=== PATIENT | male | born 1990 | race African-American/Black ===

== ENCOUNTER 2023-05-18 13:59 | Inpatient (IN) ==
--- NOTE | 2023-05-18 14:12 | ED Triage Note ---
Date of Service May 18, 2023 Provider in Triage Author: Lucio Harper History of Present Illness This patient was briefly evaluated while in triage. An abbreviated physical exam was performed. This patient is a 32-year-old Male who presents to the ED for evaluation of chest pain, R side of chest and down R side. Ongoing x 1.5 weeks. Cannot breathe when lay on R side or on back. No close contacts ill. Physical Exam GENERAL: 32 year old male. In no acute distress. SKIN: No lesions or rashes. HEART: Regular rate and rhythm. LUNGS: Clear to auscultation. ABDOMEN: Bowel sounds normoactive. No guarding or rigidity. No tenderness of palpation. NEURO: Alert and oriented. No deficits. MUSCULOSKELETAL: No deformities to inspection of the extremities. PSYCH: Patient is pleasant and answers all questions appropriately. Initial orders for labs and / or imaging were placed and patient was placed in the waiting area until a bed is available. Please see further documentation for the full ED course.
--- NOTE | 2023-05-18 14:20 | Emergency Department Note ---
History of Present Illness General Chief complaint: Chest Pain Stated complaint: CHEST PAINS Time Seen by Provider: 05/18/23 14:17 History of Present Illness This is a 32-year-old male that presents to the emergency department via private vehicle accompanied by 2 corrections officers from [facility] where he currently resides with complaints of "right-sided chest pain". Patient has for the past 1.5 weeks he has been experiencing right anterior chest pain that radiates to the right flank. No known trauma or injury. He denies any history of similar. He notes pain is also worse with a deep breath. He cannot lay flat or on his back without trouble breathing/increasing pain. He denies any trauma or injury. No fevers. I did review the accompanying documentation as provided by the corrections officers. No known drug allergies listed. Patient notes allergy to onions. Patient's active medication list includes aripiprazole, buspirone, and prazosin. History of nightmare disorder, adjustment disorder with mixed anxiety and depressed mood, cannabis use disorder. History provided from the emergency room transfer form reveals: Tachycardia, smoker, pleuritic chest pain, shortness of breath ongoing for 2 weeks, to lay flat. Sent to rule out PE. EKG dated 05/18/2023 at 1344 HRS reveals sinus tachycardia at rate of 104 bpm. QTc 449. QRS [address] elevation. Home Medications Medication Instructions Recorded Confirmed Type aripiprazole 5 mg tablet (Abilify) 5 mg PO HS 05/18/23 05/18/23 History buspirone 30 mg tablet 30 mg PO HS 05/18/23 05/18/23 History mirtazapine 45 mg tablet 45 mg PO HS 05/18/23 05/18/23 History prazosin 5 mg capsule 5 mg PO HS 05/18/23 05/18/23 History apixaban 5 mg tablet (Eliquis) 5 mg PO UD #30 tabs 05/20/23 Rx Allergies Allergy/AdvReac Type Severity Reaction Status Date / Time No Known Allergies Allergy Unverified 05/18/23 17:14 Past Med/Surg History Social History Smoking Status: Current every day smoker Tobacco Type: E-cigarettes / Vaping Hx Substance Use: No Communication Ability: Effective Production Estimator Required: No Beliefs That Will Affect Care: None Current Living Situation: Other Feels Safe at Home: Declines to Answer Assistive Devices: None Review of Systems A total of 10 systems reviewed and were otherwise negative Physical Exam Vital Signs Vital Signs - 24 hr 05/18/23 14:08 05/18/23 15:24 05/18/23 15:25 Temperature 36.0 C L Temperature Source Temporal Artery Scan Pulse Rate 96 H 93 H Pulse Rate [Apical] 93 H Respiratory Rate 17 18 18 Respiratory Effort / Characteristics Non-Labored Spontaneous Non-Labored Spontaneous Respiratory Depth Normal Normal Blood Pressure 137/106 H Blood Pressure [Left Arm] 115/80 Blood Pressure Mean 116 Blood Pressure Mean [Left Arm] 91 Blood Pressure Position [Left Arm] Sitting Pulse Oximetry 94 98 98 Oxygen Delivery Method Room Air Room Air Room Air Sepsis Recent Fever Within 48 Hours No Sepsis New/Unexplained Change in Mental Status No Sepsis Action Taken by Nursing No Action Required 05/18/23 15:25 Temperature Temperature Source Pulse Rate Pulse Rate [Apical] Respiratory Rate Respiratory Effort / Characteristics Respiratory Depth Blood Pressure Blood Pressure [Left Arm] Blood Pressure Mean Blood Pressure Mean [Left Arm] Blood Pressure Position [Left Arm] Pulse Oximetry 98 Oxygen Delivery Method Room Air Sepsis Recent Fever Within 48 Hours Sepsis New/Unexplained Change in Mental Status Sepsis Action Taken by Nursing VITAL SIGNS - Vital signs and nursing notes were reviewed. Hypertensive, borderline tachycardic at 96, low normal oxygen at 94 on room air. Afebrile. GENERAL -32-year-old male appearing his stated age who is in no acute distress. Communicates well with provider and answers questions appropriately. SKIN - Without rashes. No meningeal or petechial rash. HEAD - NC/AT. EYES - PERRL with EOMI bilaterally. Sclera anicteric. EARS - No deformities of external structures noted on gross examination bilaterally. NOSE - Midline and without cyanosis. No epistaxis or purulent drainage noted. MOUTH/OROPHARYNX - Without perioral cyanosis. Buccal mucosa pink and moist and without leukoplakia. Tongue midline with equal elevation of palate bilaterally. No tonsillar hypertrophy, erythema, or exudates noted. Good dentition noted. NECK - Neck with FROM. Supple to palpation. No lymphadenopathy noted. No nuchal rigidity. LUNGS - CTA, mildly diminished sounds on R. CARDIAC - RRR ABDOMEN - Abdominal contour normal without pulsations or visible masses. BS normoactive all four quadrants. No tenderness, palpable masses, hepatosplenomegaly, or ascites noted. EXTREMITIES - No clubbing or peripheral cyanosis. +5/5 strength noted in UE/LE bilaterally. NEUROLOGIC - Cranial nerves II through XII grossly intact. PSYCH - A&O. and cooperates fully with examiner. Pt is very pleasant and interacts well with examiner. Course Administered Medications Discontinued Medications Acetaminophen (Acetaminophen 500 Mg Tab) 1,000 mg PO NOW STA Stop: 05/18/23 17:52 Last Admin: 05/18/23 20:49 Dose: Not Given Documented By: MITRA Acetaminophen (Acetaminophen 500 Mg Tab) 1,000 mg PO Q8H YU Stop: 06/17/23 20:14 Last Admin: 05/20/23 11:03 Dose: 1,000 mg Documented By: Admin: 05/20/23 05:14 Dose: Not Given Documented By: Admin: 05/19/23 20:45 Dose: 1,000 mg Documented By: Admin: 05/19/23 12:41 Dose: Not Given Documented By: Admin: 05/19/23 05:33 Dose: 1,000 mg Documented By: Admin: 05/18/23 21:16 Dose: 1,000 mg Documented By: MITRA Apixaban (Apixaban 5 Mg Tablet) 10 mg PO BID YU Stop: 05/26/23 21:01 Last Admin: 05/20/23 11:02 Dose: 10 mg Documented By: MONA Aripiprazole (Aripiprazole 5 Mg Tab) 5 mg PO HS YU Stop: 06/17/23 20:59 Last Admin: 05/19/23 20:46 Dose: 5 mg Documented By: Admin: 05/18/23 21:16 Dose: 5 mg Documented By: MITRA Buspirone HCl (Buspirone 15 Mg Tab) 30 mg PO HS YU Stop: 06/17/23 20:59 Last Admin: 05/19/23 20:45 Dose: 30 mg Documented By: Admin: 05/18/23 21:16 Dose: 30 mg Documented By: MITRA Heparin Sodium (Porcine) (Heparin Sod (Porcine) 1000 Unit/Ml) 1 units IV NOW ONE Stop: 05/18/23 17:08 Last Admin: 05/18/23 18:14 Dose: Not Given Documented By: WARREN Heparin Sodium (Porcine) (Heparin Sod (Porcine) 1000 Unit/Ml) 7,000 units IV NOW STA Stop: 05/18/23 17:52 Last Admin: 05/18/23 18:06 Dose: 7,000 units Documented By: CC Co-signed By: ERMELINDA Heparin Sodium/Dextrose (Heparin Sodium/Dextrose) 25,000 units in 500 mls @ 27 mls/hr IV .[id number] [facility]; Protocol Stop: 06/17/23 17:14 Last Titration: 05/20/23 10:29 Dose: Infused Documented By: MONA Co-signed By: RON Titration: 05/20/23 07:01 Dose: 1,350 units/hr, 27 mls/hr Documented By: MONA Co-signed By: MITRA Admin: 05/19/23 22:36 Dose: 1,350 units/hr, 27 mls/hr Documented By: MITRA Co-signed By: NIKI Titration: 05/19/23 22:21 Dose: Infused Documented By: MITRA Co-signed By: AKP Titration: 05/19/23 19:03 Dose: 1,350 units/hr, 27 mls/hr Documented By: MITRA Co-signed By: ES Titration: 05/19/23 15:11 Dose: 1,350 units/hr, 27 mls/hr Documented By: IMELDA Co-signed By: RON Admin: 05/19/23 12:41 Dose: Not Given Documented By: Titration: 05/19/23 05:00 Dose: 0 units/hr, 0 mls/hr Documented By: MITRA Co-signed By: AKP Titration: 05/19/23 03:10 Dose: 1,350 units/hr, 27 mls/hr Documented By: MITRA Co-signed By: ESG Titration: 05/19/23 02:08 Dose: 0 units/hr, 0 mls/hr Documented By: MITRA Co-signed By: AKP Admin: 05/18/23 18:06 Dose: 1,600 units/hr, 32 mls/hr Documented By: WARREN Co-signed By: ERMELINDA Ioversol (Optiray 320 125ml) 115 ml IV ONCE ONE Stop: 05/18/23 15:09 Last Admin: 05/18/23 15:08 Dose: 115 ml Documented By: MILENA Mirtazapine (Mirtazapine Soltab 15 Mg) 45 mg PO HS [facility] Stop: 06/17/23 20:59 Last Admin: 05/19/23 20:45 Dose: 45 mg Documented By: Admin: 05/18/23 21:16 Dose: 45 mg Documented By: MITRA Morphine Sulfate (Morphine Sulfate 2 Mg/Ml Carp) 2 mg IV NOW STA Stop: 05/18/23 17:53 Last Admin: 05/18/23 20:49 Dose: Not Given Documented By: MITRA Prazosin HCl (Prazosin Hcl 1 Mg Cap) 5 mg PO HS YU Stop: 06/17/23 20:59 Last Admin: 05/19/23 20:45 Dose: 5 mg Documented By: Admin: 05/18/23 21:15 Dose: 5 mg Documented By: MITRA Critical Care Time Critical Care Time: Yes Total Critical Care Time: 36 I have personally spent greater about 36 minutes of critical care time in the direct management of this patient. This includes bedside care, interpretation of diagnostic studies, and testing, discussion with consultants, patient, and family members, and other required patient management activities. This 36 minutes is in excess of all separately billable procedures. Medical Decision Making Laboratory Data 05/20/23 04:27 05/20/23 04:27 Lab Results 05/18/23 Range/Units 14:23 WBC 7.66 (4.8-10.8) K/ul RBC 5.48 (4.70-6.10) M/uL Hgb 16.0 (14.0-18.0) g/dl Hct 47.6 (42.0-52.0) % MCV 86.9 (80.0-100.0) fL MCH 29.2 (25.0-34.0) pg MCHC 33.6 (32.0-36.0) g/dL RDW Std Deviation 37.8 (36.4-46.3) fL RDW Coeff of Alberto 11.8 (11.5-14.5) % Plt Count 299 (130-400) K/uL MPV 9.4 (9.4-12.4) fL Immature Gran % (Auto) 0.1 % Neut % (Auto) 64.1 % Lymph % (Auto) 27.2 % Mcpherson % (Auto) 7.3 % Eos % (Auto) 0.9 % Baso % (Auto) 0.4 % Neut # (Auto) 4.91 (1.40-6.50) K/uL Lymph # (Auto) 2.08 (1.20-3.40) K/uL Mcpherson # (Auto) 0.56 (0.11-0.59) K/uL Eos # (Auto) 0.07 (0.00-0.50) K/uL Baso # (Auto) 0.03 (0.00-0.20) K/uL Immature Gran # (Auto) 0.01 (0.01-0.20) K/uL PT 11.4 (9.0-12.0) Seconds INR 1.0 (0.9-1.1) APTT 28 (21-31) Seconds PTT Ratio 1.0 Sodium 138 (136-145) mmol/L Potassium 4.7 (3.5-5.1) mmol/L Chloride 105 (98-107) mmol/L Carbon Dioxide 27 (21-32) mmol/L Anion Gap 6 (3-11) BUN 13 (6-23) mg/dl Creatinine 1.44 H (0.6-1.4) mg/dl Est Cr Clr Drug Dosing 91.9 ml/min Est GFR ( Amer) 72.9 ml/min Est GFR (Non-Af Amer) 62.9 ml/min BUN/Creatinine Ratio 9.0 L (10-20) Glucose 87 (70-99(Fasting)) mg/dl Calcium 10.0 (8.6-10.3) mg/dl Total Bilirubin 0.7 (0.2-1.0) mg/dl AST 11 L (13-39) U/L ALT 15 (7-52) U/L Alkaline Phosphatase 62 (34-104) U/L Troponin I High Sens < 2.3 (0-20) pg/ml Total Protein 8.1 (6.0-8.3) gm/dl Albumin 4.6 (3.4-5.0) gm/dl Globulin 3.5 (2.5-4.0) gm/dl Albumin/Globulin Ratio 1.3 (0.9-2) Lipase 24 (11-82) U/L Imaging Data Radiologist's Impression: Venous Doppler Study 05/18/23 00:00 CR Exam(s): US VENOUS BILATERAL LOWER EXTREMITIES EXAM: US Duplex Bilateral Lower Extremities Veins CLINICAL HISTORY: Reason for exam: r/o DVT, B/l. TECHNIQUE: Real-time duplex ultrasound scan of the bilateral lower extremity veins integrating B-mode two-dimensional vascular structure, Doppler spectral analysis, color flow Doppler imaging and compression. COMPARISON: No relevant prior studies available. FINDINGS: Right deep veins: Unremarkable. No DVT in the right common femoral, femoral, proximal deep femoral or popliteal veins. The veins demonstrate normal color flow, are normally compressible, with normal phasic flow and/or augmentation response. Right superficial veins: Unremarkable. No thrombus in the visualized right great saphenous vein. Left deep veins: There is occlusive thrombus in the left popliteal vein which is noncompressible consistent with acute DVT. Left superficial veins: Unremarkable. No thrombus in the visualized left great saphenous vein. Soft tissues: No acute findings. No popliteal cyst. IMPRESSION: 1. There is occlusive thrombus in the left popliteal vein which is noncompressible consistent with acute DVT. 2. No evidence of DVT in the right lower extremity. Communications: Call Doctor DVT acute, progressing Electronically signed by: Jonathan John MD 05/18/23 20:21 PM Chest CTA 05/18/23 14:12 CHEST CTA for PULMONARY ARTERIES CT DOSE: HISTORY: R sided chest pain, cannot lay flat TECHNIQUE: Multiaxial CT images of the chest were performed following the intravenous administration of contrast to evaluate the pulmonary arteries. 3D/Maximal intensity projection images were also obtained. Sagittal and coronal reformations were also reviewed. A dose lowering technique was utilized adhering to the principles of ALARA. COMPARISON STUDY: None. FINDINGS: No acute fractures within the chest. The abdominal structures will be reported on the same day abdomen and pelvis CT. No evidence for an aortic dissection. The aortic root is mildly dilated up to 4 cm. The heart is normal in size. Borderline right-sided heart strain is noted. Trace pericardial effusion. There is a moderate to large right pleural effusion. Multiple bilateral pulmonary emboli in involving the majority of the bilateral lower lobe, right middle lobe, and lingular segmental pulmonary arteries. Normal esophagus. The thyroid gland enhances normally. No mediastinal or hilar lymphadenopathy. Small amount of soft tissue within the anterior mediastinum favors residual thymus given the patient's age. No pneumothorax. The central airways are patent. The left lung is clear. Consolidation within the base of the right lower lobe is nonspecific but favors compressive atelectasis from the pleural effusion. Focal wedge-shaped densities within the right middle lobe favor pulmonary infarcts. Lobular hyperdensity within the base of the right lower lobe on image 129 measuring 4.1 x 3.4 cm. This may also represent a pulmonary infarct. However, [address] follow-up recommended to ensure resolution and exclude the possibility of an underlying pulmonary mass. IMPRESSION: 1. Bilateral pulmonary emboli with borderline right-sided heart strain and multiple right-sided pulmonary infarcts. 2. Moderate to large right pleural effusion. 3. Lobular hypodensity within the base of the right lower lobe measuring 4.1 x 3.4 cm. This may also represent a pulmonary infarct. However, follow-up chest CT in 3 months is recommended to exclude the possibility of a pulmonary mass. 4. Mild dilatation of the aortic root measuring 4 cm. No evidence for an aortic dissection. ACT 112: Negative or not required by law. Electronically signed by: Aurelio Buenrostro M.D. 05/18/2023 4:27 PM Abdomen/Pelvis CT 05/18/23 14:33 CT OF THE ABDOMEN AND PELVIS WITH CONTRAST CLINICAL HISTORY: R sided flank pain, R sided chest pain COMPARISON STUDY: None. TECHNIQUE: Following IV administration of 115 mL of Optiray, axial images of the abdomen and pelvis were obtained from the lung bases to the proximal femurs. Images were reviewed in the axial, sagittal, and coronal planes. IV contrast was administered without complication. Automated exposure control was utilized for the study. A dose lowering technique was utilized adhering to the principles of ALARA. CT DOSE: 2365.52 mGy.cm FINDINGS: Multiple pulmonary emboli are depicted on the chest CT which will be reported separately. There is a moderate right pleural effusion. Several right lung suspected pulmonary infarcts are better depicted on the chest CT. No pneumatosis, free air or portal venous gas is present. Prominent right cardiophrenic angle lymph nodes noted. Liver, spleen, adrenal glands, kidneys and pancreas are unremarkable. Subcentimeter left renal lesion is too small to characterize. There is no biliary or pancreatic ductal dilatation. No hydronephrosis. The caliber and wall thickness of small and large bowel are normal. The appendix is normal. No ureteral calculi are identified. IMPRESSION: 1. No acute process within the abdomen or pelvis. 2. Multiple pulmonary emboli, several pulmonary infarcts and a moderate size right pleural effusion better depicted on the chest CT which will be reported separately. ACT 112: Negative or not required by law. Electronically signed by: Vishal Awad M.D. 05/18/2023 3:42 PM MDM Narrative Patient was seen and evaluated as above in the triage waiting room, again in room D8 while undergoing EKG and blood work/IV placement and then in D04. Review was performed of nursing notes and vital signs. I did review the accompanying documentation as provided by CHERELLE Nixon. After obtaining a thorough history and physical examination the above work up was performed. Patient presents for evaluation of right-sided chest pain that radiates to the right lateral flank over the past 1.5 weeks and now cannot lay flat or lay on that side without pain and dyspnea. No history of similar. Options of care were discussed with the patient. IV access was established. Labs were drawn. CTA of the chest was ordered. EKG performed here dated 1415 HRS on 05/18/2023 reveals normal sinus rhythm at a rate of 99 bpm. QTc 438. QRS 72. No ST elevation. Labs reveal no leukocytosis or concerning anemia. Coags normal. No emergent metabolic disturbance but will note minor JONAS with creatinine of 1.44. Troponin negative. Lipase normal. CT scans returned. Unfortunately per review of radiology reports patient does have bilateral pulmonary emboli with borderline right heart strain and multiple right-sided pulmonary infarcts. Moderate to large right pleural effusion. Lobular hypodensity within the base of the right lower lobe measuring 4.1 x 3.4 cm. This may also represent a pulmonary infarct. However, follow-up chest CT in 3 months is recommended to exclude the possibility of another pulmonary mass. Mild dilation of the aortic root measuring 4 cm. No evidence for dissection. Abdomen/pelvis without acute process but further sees the findings in the lungs. I also reviewed the imaging. This was discussed with the attending physician and also Dr. Nesbitt of pulmonology. Plan at this time is IV heparin, and Dr. Nesbitt will see the patient in consult. I did discuss benefit versus risk of IV anticoagulation with the patient. The patient denies any headaches, trauma, injury, GI bleeding, blood in the stool, or any other contraindications to anticoagulation. At this time through shared decision-making with the patient we will proceed. It is felt that the benefit of the IV heparin outweighs risk. Case discussed with the hospitalist service. Please refer to further documentation regarding his stay. GCS: 15 In the evaluation and treatment of this patient the following differential diagnoses were entertained: Pleural effusion, pulmonary infarct, pulmonary embolism, pneumonia, rib fracture, among others Attending Attestation: I Jonathan Pritchard MD I have reviewed the advanced practitioner's documentation and agree with the plan of care. CTA reviewed by myself showing PEs as well a right effusion. No hemodynamic instability. Discussed with PA in real time as well as discussion with Dr. Nesbitt of pulmonary who evaluated this patient in the ED. Heparin drip started for anticoagulation with plan for thoracentesis by pulmonary in morning. Bedside nurse updated by myself with plan of care. I accept the responsibility for the associated risk of managing the patient. Critical Care I Jonathan Pritchard have personally spent 36 minutes of critical care time in the direct management of this patient. This includes bedside care, interpretation of diagnostic studies, and testing, discussion with consultants, patient, and other required patient management activities. These 36 minutes is in excess of all separately billable procedures. Impression & Plan Pulmonary embolism, Pulmonary infarction, Pleural effusion, JONAS (acute kidney injury) Discharge Plan Visit Data Chief Complaint: Chest Pain Stated Complaint: CHEST PAINS ED Provider: Jonathan Pritchard ED Midlevel Provider: Lucio Harper Discharge Problem: Pulmonary embolism, Pulmonary infarction, Pleural effusion, JONAS (acute kidney injury) Patient Disposition: Admitted As Inpatient Condition: Good Discharge Instructions Interventions: ED Discharge Assessment Last Done: 05/18/23 18:41
[2023-05-18 14:53] LABS: Basophils # (auto) 0.03 K/uL (0.00-0.20); Basophils % (auto) 0.4 %; Eosinophils # (auto) 0.07 K/uL (0.00-0.50); Eosinophils % (auto) 0.9 %; Hematocrit (blood only) 47.6 % (42.0-52.0); Immature Granulocytes # (auto) 0.01 K/uL (0.01-0.20); Immature Granulocytes % (auto) 0.1 %; Lymphocytes # (auto) 2.08 K/uL (1.20-3.40); Lymphocytes % (auto) 27.2 %; Mean Corpuscular Hemoglobin 29.2 pg (25.0-34.0); Mean Corpuscular Hgb Conc 33.6 g/dL (32.0-36.0); Mean Corpuscular Volume 86.9 fL (80.0-100.0); Mean Platelet Volume 9.4 fL (9.4-12.4); Monocytes # (auto) 0.56 K/uL (0.11-0.59); Monocytes % (auto) 7.3 %; Neutrophils # (auto) 4.91 K/uL (1.40-6.50); Neutrophils % (auto) 64.1 %; Platelet Count 299 K/uL (130-400); RDW Coefficient of Variation 11.8 % (11.5-14.5); RDW Standard Deviation 37.8 fL (36.4-46.3); Red Blood Count 5.48 M/uL (4.70-6.10); White Blood Count 7.66 K/ul (4.8-10.8)
[2023-05-18] MEDS: OPTIRAY 320 125ml IV ONE (15:08)
[2023-05-18 15:10] LABS: Alanine Aminotransferase 15 U/L (7-52); Albumin Globulin Ratio 1.3 (0.9-2); Albumin Level 4.6 gm/dl (3.4-5.0); Alkaline Phosphatase 62 U/L (34-104); Anion Gap 6 (3-11); Aspartate Aminotransferase 11 U/L (13-39); Bilirubin,Total 0.7 mg/dl (0.2-1.0); Blood Urea Nitrogen 13 mg/dl (6-23); Carbon Dioxide 27 mmol/L (21-32); Chloride 105 mmol/L (98-107); Creatinine Clr Calc Pharmacy 91.9 ml/min; Est GFR (African American) 72.9 ml/min; Est GFR (Non-African American) 62.9 ml/min; Globulin 3.5 gm/dl (2.5-4.0); Glucose 87 mg/dl (70-99(Fasting)); Lipase 24 U/L (11-82); Potassium 4.7 mmol/L (3.5-5.1); Sodium 138 mmol/L (136-145); Total Protein 8.1 gm/dl (6.0-8.3)
[2023-05-18 15:14] LABS: Troponin I High Sensitivity < 2.3 pg/ml (0-20)
[2023-05-18 15:19] LABS: Partial Thromboplastin Time 28 Seconds (21-31); Prothrombin Time 11.4 Seconds (9.0-12.0)
--- NOTE | 2023-05-18 15:24 | Electrocardiogram Report ---
Test Reason : Blood Pressure : / mmHG Vent. Rate : 099 BPM Atrial Rate : 099 BPM P-R Int : 148 ms QRS Dur : 072 ms QT Int : 342 ms P-R-T Axes : 058 077 046 degrees QTc Int : 438 ms Normal sinus rhythm Normal ECG No previous ECGs available Confirmed by Rommel Hood ([id number]) on 05/18/2023 3:24:04 PM Referred By: Confirmed By:Sebastian Hood
--- NOTE | 2023-05-18 15:44 | CT Scan Report ---
CT OF THE ABDOMEN AND PELVIS WITH CONTRAST CLINICAL HISTORY: R sided flank pain, R sided chest pain COMPARISON STUDY: None. TECHNIQUE: Following IV administration of 115 mL of Optiray, axial images of the abdomen and pelvis w ere obtained from the lung bases to the proximal femurs. Images were reviewed in the axial, sagittal, and coronal planes. IV contrast was administered without complication. Automated exposure control w as utilized for the study. A dose lowering technique was utilized adhering to the principles of JOSEFA Ontiveros. CT DOSE: 2365.52 mGy.cm FINDINGS: Multiple pulmonary emboli are depicted on the chest CT which will be reported separately. T here is a moderate right pleural effusion. Several right lung suspected pulmonary infarcts are better depicted on the chest CT. No pneumatosis, free air or portal venous gas is present. Prominent right cardiophrenic angle lymph nodes noted. Liver, spleen, adrenal glands, kidneys and pancreas are unrema rkable. Subcentimeter left renal lesion is too small to characterize. There is no biliary or pancreat ic ductal dilatation. No hydronephrosis. The caliber and wall thickness of small and large bowel are normal. The appendix is normal. No ureteral calculi are identified. IMPRESSION: 1. No acute process within the abdomen or pelvis. 2. Multiple pulmonary emboli, several pulmonary infarcts and a moderate size right pleural effusion b narendra depicted on the chest CT which will be reported separately. ACT 112: Negative or not required by law. Electronically signed by: Vishal Awad M.D. 05/18/2023 3:42 PM
--- NOTE | 2023-05-18 16:29 | CT Scan Report ---
CHEST CTA for PULMONARY ARTERIES CT DOSE: HISTORY: R sided chest pain, cannot lay flat TECHNIQUE: Multiaxial CT images of the chest were performed following the intravenous administration of contrast to evaluate the pulmonary arteries. 3D/Maximal intensity projection images were also obta ined. Sagittal and coronal reformations were also reviewed. A dose lowering technique was utilized a dhering to the principles of ALARA. COMPARISON STUDY: None. FINDINGS: No acute fractures within the chest. The abdominal structures will be reported on the same day abdomen and pelvis CT. No evidence for an aortic dissection. The aortic root is mildly dilated up to 4 cm. The heart is normal in size. Borderline right-sided heart strain is noted. Trace pericardia l effusion. There is a moderate to large right pleural effusion. Multiple bilateral pulmonary emboli in involving the majority of the bilateral lower lobe, right middle lobe, and lingular segmental pulm onary arteries. Normal esophagus. The thyroid gland enhances normally. No mediastinal or hilar lympha denopathy. Small amount of soft tissue within the anterior mediastinum favors residual thymus given t he patient's age. No pneumothorax. The central airways are patent. The left lung is clear. Consolidat ion within the base of the right lower lobe is nonspecific but favors compressive atelectasis from th e pleural effusion. Focal wedge-shaped densities within the right middle lobe favor pulmonary infarct s. Lobular hyperdensity within the base of the right lower lobe on image 129 measuring 4.1 x 3.4 cm. This may also represent a pulmonary infarct. However, [address] follow-up recommended to ensur e resolution and exclude the possibility of an underlying pulmonary mass. IMPRESSION: 1. Bilateral pulmonary emboli with borderline right-sided heart strain and multiple right-sided pulmo nary infarcts. 2. Moderate to large right pleural effusion. 3. Lobular hypodensity within the base of the right lower lobe measuring 4.1 x 3.4 cm. This may also represent a pulmonary infarct. However, follow-up chest CT in 3 months is recommended to exclude the possibility of a pulmonary mass. 4. Mild dilatation of the aortic root measuring 4 cm. No evidence for an aortic dissection. ACT 112: Negative or not required by law. Electronically signed by: Aurelio Buenrostro M.D. 05/18/2023 4:27 PM
--- NOTE | 2023-05-18 16:49 | Pulmonary Consultation ---
Date of Consultation May 18, 2023 Assessment & Plan (1) Pleural effusion: (2) Pulmonary infarction: (3) Pulmonary embolism: (4) Abnormal chest CT: (5) DVT (deep venous thrombosis): Plan CTA chest 05/18/2023 personally reviewed: Large right-sided pleural effusion Bilateral pulmonary emboli appreciated No RV strain on the CAT scan Does have opacity in the right middle as well as the right lower lobe Likely represent pulmonary infarct -- Acute pulmonary emboli No evidence of right heart strain on the CAT scan sPESI 0 EKG shows sinus tachycardia. No ST-T wave changes. Normal axis, QTc 438 --Large right-sided pleural effusion Etiology is not clear Will benefit from thoracentesis -- Abnormal chest CT Patient does seem to have some opacities in the right middle lobe on the periphery as well as right lower lobe on the periphery Going more towards pulmonary infarcts from the pulmonary emboli that he has. Will need to repeat CT chest to be done in 3 months to keep an eye on them. Plan: Hemodynamically stable, saturating well on room air. No indication for tPA Continue with heparin drip. Will hold it tomorrow around 6 AM for thoracentesis on the right side. Will send for cytology as well Follow-up BNP and troponin Follow-up 2D echo Pulmonary will continue to follow Please note the above document was generated using voice recognition software. It may contain grammatical, syntax or spelling errors.Any formal questions or concerns about the content, text or information contained within the body of this dictation should be directly addressed to the provider for clarification. History of Present Illness History of Present Illness 32-year-old male presents to the hospital complaint of chest pain Past medical history: Pulmonary consulted for right-sided pleural effusion and pulmonary emboli. Brief signout was given to me by Dr. Pritchard in the ED. Present guards were in the room at the time of examination The patient said that he was having issues with his breathing for approximately a week, progressively getting worse It was pleuritic in nature. Denies any recent trauma to the legs No recent long travel history He has been incarcerated for approximately 2 years. No fever or chills No dysuria, or diarrhea No headache, no blurry vision No nausea or vomiting No history of blood clots in the family Social history: Does vaping No history of lung cancer in the family Allergies Allergy/AdvReac Type Severity Reaction Status Date / Time No Known Allergies Allergy Unverified 05/18/23 17:14 Home Medications Medication Instructions Recorded Confirmed Type aripiprazole 5 mg tablet (Abilify) 5 mg PO HS 05/18/23 05/18/23 History buspirone 30 mg tablet 30 mg PO HS 05/18/23 05/18/23 History mirtazapine 45 mg tablet 45 mg PO HS 05/18/23 05/18/23 History prazosin 5 mg capsule 5 mg PO HS 05/18/23 05/18/23 History Patient History Social History Smoking Status: Current every day smoker Tobacco Type: E-cigarettes / Vaping Hx Substance Use: No Communication Ability: Effective Rigging Slinger Required: No Beliefs That Will Affect Care: None Current Living Situation: Other Other Information That Helps Us Care for You: No Feels Safe at Home: Declines to Answer Safety Concerns: Afraid for Self Assistive Devices: None Review of Systems 2 Review of Systems: All systems reviewed & are unremarkable except as noted in HPI & below Physical Exam 2 Physical Exam: Constitutional: No acute distress HEENT: EOMI, PERRLA Respiratory system: Decreased air entry on right side, no wheeze, no rhonchi, positive crackles CVS: S1-S2 positive, no murmurs or gallops Abdomen: Soft, nontender, nondistended, positive bowel sounds x4 Extremities: +2 pulses bilaterally radialis/ dorsalis pedis, no cyanosis, no edema Neuro: Awake alert oriented x3 Psych: Normal mood and affect G/U: No Grewal Skin: no rashes, warm and dry Lymphatic: no cervical or axillary lymphadenopathy Results & Data Results & Data Vital Signs (Past 12 Hours) Vital Signs Temp Pulse Pulse Resp BP BP Pulse Ox 05/18/23 15:25 98 05/18/23 15:25 93 H 18 98 05/18/23 15:24 93 H 18 115/80 98 05/18/23 14:08 36.0 C L 96 H 17 137/106 H 94 O2 Del Method 05/18/23 15:25 Room Air 05/18/23 15:25 Room Air 05/18/23 15:24 Room Air 05/18/23 14:08 Room Air Laboratory Results 05/18/23 14:23 05/18/23 14:23 PG Care Time/CCT Total # of Minutes Spent Total Time Spent with Patient: Total time spent is greater than 50% in coordination of care (as documented) at patient's floor/unit and/or counseling patient: Coding Level of Care Code 54945 INT INP/OBS CARE 3/75MIN Diagnoses Pleural effusion J90 Pulmonary infarction I26.99 Pulmonary embolism I26.[address] R93.89 DVT (deep venous thrombosis) I82.409
[2023-05-18] MEDS ORDERED: Heparin IV Adult Wt-Based Standard w/ INITIAL Bolus Protocol IV STA (16:51)
[2023-05-18] MEDS ORDERED: Patient's ALLERGY Info needs ENTERED STA (17:01)
--- NOTE | 2023-05-18 17:20 | History & Physical Report ---
Date of Service May 18, 2023 Assessment & Plan (1) Pulmonary embolism: (2) Pulmonary infarction: (3) Pleural effusion: Plan: Acute bilateral pulmonary Emboli Large right-sided pleural effusion Abnormal chest CT -Admit to PCU -Echo pending, CT does not show any right ventricular heart strain -EKG shows sinus tachycardia, no ST wave inversions or signs of ischemia -Pulmonary consulted, planning on thoracentesis tomorrow morning with pleural fluid studies ordered -Heparin drip started in the ER, continue, will need to be held prior to thoracentesis tomorrow morning around [address] Nesbitt -Unknown cause for pulmonary emboli, will require follow-up testing 3 months from now for coagulation workup -Will require CT chest repeat in 3-month to evaluate -Supportive care -Patient vital signs are stable, O2 sats remained stable on room air Creatinine elevation ? JONAS -Presume that this is JONAS however have no previous CR/BUN to review and compared to -Trend with a.m. labs Anxiety and depression Adjustment disorder History of marijuana use -Continue on Abilify, prazosin, BuSpar, mirtazapine DVT PPx: Heparin drip Lines: 2 PIV FEN/GI: Allow diet, n.p.o. at midnight for thoracentesis CODE: Full code Dispo: From home, likely to remain in the hospital x 2 days A total of 82 minutes were spent with greater than 50% of that time face to face with the patient, personally reviewing all current laboratories, imaging studies, past medication reconciliation, outpatient chart review, and discussion with specialists to collaborate care for the patient with attending. Please see attending documentation for corrections and/or additions. (4) JONAS (acute kidney injury): History of Present Illness Chief Complaint: Chest pain Primary Care Provider: CHERELLE Nixon This is a 32-year-old male with PMHx of anxiety, depression, adjustment disorder, cannabis use disorder(last time used marijuana was over 2 years ago), who presents to the hospital from [facility] for onset of right-sided chest pain x 1.5 weeks. This right sided chest pain extends down the flank region, worsened with deep breaths, seems to be fairly constant/consistent over the past 2 weeks. He denies any notable shortness of b reath. 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 Denies any recent injuries or trauma. He is not sedentary. He admits that he has vaped nicotine for about the past 2 years since being in the nursing home. He denies any known family member with clotting disorders or hx of clots. Denies lower extremity leg swelling or arm swelling. Pt has gotten one tattoo while he was incarcerated which was a few months ago. Other tattoos were done prior to incarceration. He takes his medications routinely and last received them last night. He states that his pain is currently an 8/10 in his ribs, has not gotten any pain medicine since being in the ER. He is also asking if he is able to eat anything as he has not done so today. Reports his bowels are normal, no urinary complaints, no fevers, chills or sweats. Allergies Allergy/AdvReac Type Severity Reaction Status Date / Time No Known Allergies Allergy Unverified 05/18/23 17:14 Home Medications Medication Instructions Recorded Confirmed Type aripiprazole 5 mg tablet (Abilify) 5 mg PO HS 05/18/23 05/18/23 History buspirone 30 mg tablet 30 mg PO HS 05/18/23 05/18/23 History mirtazapine 45 mg tablet 45 mg PO HS 05/18/23 05/18/23 History prazosin 5 mg capsule 5 mg PO HS 05/18/23 05/18/23 History Past Med/Surg History Social History Smoking Status: Current every day smoker Tobacco Type: E-cigarettes / Vaping Review of Systems Review of Systems: Constitutional: No fever, chills, sweats, fatigue or weakness Eyes: No diplopia, no changes in vision ENT: No sore throat, tinnitus, or trouble swallowing Respiratory: No shortness of breath, No dyspnea at rest or on exertion, no cough or sputum, right-sided rib pain, down his right flank region Cardiovascular: No chest pain, palpitations, or flutter Abdomen: No pain, No constipation, No diarrhea, No nausea, No vomiting Musculoskeletal: No calf pain, No joint pain, No swelling Genitourinary : No dysuria or urinary frequency, No hematuria Neurologic: No numbness/tingling, no difficulty with ambulation, no sensory or motor deficits Psychiatric: No depression or anxiety symptoms Endocrine: No fatigue, No weight changes Integumentary: No itch, No rash Physical Exam Physical Exam: General: awake, alert, no apparent distress, -Romanian, physically fit male, BMI of 32.4 Head: Normocephalic, atraumatic ENT: PERRL, EOMI, no pharyngeal exudate, mucous membranes moist Chest: Clear to auscultation, right-sided lower lobe breath sounds are absent, on room air O2 sats are 98%, no adventitious breath sounds Cardiac: Regular rate and rhythm, no murmur, no JVD, normal peripheral pulses, good capillary refill Abdominal: NABS x 4 quadrants, soft, nondistended, nontender to palpation, no rebound or guarding Extremities: Normal inspection, no peripheral edema or erythema, calfs nontender to palpation Psych: Normal mood and affect Skin: Multiple tattoos on arms, neck, chest- ptreports left forearm tattoo done in nursing home several months ago, well-healed, no surrounding edema or erythema present Neuro: AAO x 3, strength intact bilaterally and rated 5/5, no motor deficits, speech is clear, no peripheral sensory deficits Results & Data Results & Data Vital Signs (Past 12 Hours) Vital Signs Temp Pulse Pulse Resp BP BP Pulse Ox 05/18/23 15:25 98 05/18/23 15:25 93 H 18 98 05/18/23 15:24 93 H 18 115/80 98 05/18/23 14:08 36.0 C L 96 H 17 137/106 H 94 O2 Del Method 05/18/23 15:25 Room Air 05/18/23 15:25 Room Air 05/18/23 15:24 Room Air 05/18/23 14:08 Room Air Laboratory Results 05/18/23 14:23 WBC 7.66 RBC 5.48 Hgb 16.0 Hct 47.6 MCV 86.9 MCH 29.2 MCHC 33.6 RDW Std Deviation 37.8 RDW Coeff of Alberto 11.8 Plt Count 299 MPV 9.4 Immature Gran % (Auto) 0.1 Neut % (Auto) 64.1 Lymph % (Auto) 27.2 [place] % (Auto) 7.3 Eos % (Auto) 0.9 Baso % (Auto) 0.4 Neut # (Auto) 4.91 Lymph # (Auto) 2.08 [place] # (Auto) 0.56 Eos # (Auto) 0.07 Baso # (Auto) 0.03 Immature Gran # (Auto) 0.01 PT 11.4 INR 1.0 APTT 28 PTT Ratio 1.0 Sodium 138 Potassium 4.7 Chloride 105 Carbon Dioxide 27 Anion Gap 6 BUN 13 Creatinine 1.44 H Est Cr Clr Drug Dosing 91.9 Est GFR ( Amer) 72.9 Est GFR (Non-Af Amer) 62.9 BUN/Creatinine Ratio 9.0 L Glucose 87 Calcium 10.0 Total Bilirubin 0.7 AST 11 L ALT 15 Alkaline Phosphatase 62 Troponin I High Sens < 2.3 Total Protein 8.1 Albumin 4.6 Globulin 3.5 Albumin/Globulin Ratio 1.3 Lipase 24 Diagnostic Findings Chest CTA 05/18/23 14:12 CHEST CTA for PULMONARY ARTERIES CT DOSE: HISTORY: R sided chest pain, cannot lay flat TECHNIQUE: Multiaxial CT images of the chest were performed following the intravenous administration of contrast to evaluate the pulmonary arteries. 3D/Maximal intensity projection images were also obtained. Sagittal and coronal reformations were also reviewed. A dose lowering technique was utilized adhering to the principles of ALARA. COMPARISON STUDY: None. FINDINGS: No acute fractures within the chest. The abdominal structures will be reported on the same day abdomen and pelvis CT. No evidence for an aortic dissection. The aortic root is mildly dilated up to 4 cm. The heart is normal in size. Borderline right-sided heart strain is noted. Trace pericardial effusion. There is a moderate to large right pleural effusion. Multiple bilateral pulmonary emboli in involving the majority of the bilateral lower lobe, right middle lobe, and lingular segmental pulmonary arteries. Normal esophagus. The thyroid gland enhances normally. No mediastinal or hilar lymphadenopathy. Small amount of soft tissue within the anterior mediastinum favors residual thymus given the patient's age. No pneumothorax. The central airways are patent. The left lung is clear. Consolidation within the base of the right lower lobe is nonspecific but favors compressive atelectasis from the pleural effusion. Focal wedge-shaped densities within the right middle lobe favor pulmonary infarcts. Lobular hyperdensity within the base of the right lower lobe on image 129 measuring 4.1 x 3.4 cm. This may also represent a pulmonary infarct. However, [address] follow-up recommended to ensure resolution and exclude the possibility of an underlying pulmonary mass. IMPRESSION: 1. Bilateral pulmonary emboli with borderline right-sided heart strain and multiple right-sided pulmonary infarcts. 2. Moderate to large right pleural effusion. 3. Lobular hypodensity within the base of the right lower lobe measuring 4.1 x 3.4 cm. This may also represent a pulmonary infarct. However, follow-up chest CT in 3 months is recommended to exclude the possibility of a pulmonary mass. 4. Mild dilatation of the aortic root measuring 4 cm. No evidence for an aortic dissection. ACT 112: Negative or not required by law. Electronically signed by: Aurelio Buenrostro M.D. 05/18/2023 4:27 PM Abdomen/Pelvis CT 05/18/23 14:33 CT OF THE ABDOMEN AND PELVIS WITH CONTRAST CLINICAL HISTORY: R sided flank pain, R sided chest pain COMPARISON STUDY: None. TECHNIQUE: Following IV administration of 115 mL of Optiray, axial images of the abdomen and pelvis were obtained from the lung bases to the proximal femurs. Images were reviewed in the axial, sagittal, and coronal planes. IV contrast was administered without complication. Automated exposure control was utilized for the study. A dose lowering technique was utilized adhering to the principles of ALARA. CT DOSE: 2365.52 mGy.cm FINDINGS: Multiple pulmonary emboli are depicted on the chest CT which will be reported separately. There is a moderate right pleural effusion. Several right lung suspected pulmonary infarcts are better depicted on the chest CT. No pneumatosis, free air or portal venous gas is present. Prominent right cardiophrenic angle lymph nodes noted. Liver, spleen, adrenal glands, kidneys and pancreas are unremarkable. Subcentimeter left renal lesion is too small to characterize. There is no biliary or pancreatic ductal dilatation. No hydronephrosis. The caliber and wall thickness of small and large bowel are normal. The appendix is normal. No ureteral calculi are identified. IMPRESSION: 1. No acute process within the abdomen or pelvis. 2. Multiple pulmonary emboli, several pulmonary infarcts and a moderate size right pleural effusion better depicted on the chest CT which will be reported separately. ACT 112: Negative or not required by law. Electronically signed by: Vishal Awad M.D. 05/18/2023 3:42 PM ECG Additional Comments: Reviewed, NSR, no ST wave inversions or signs of ischemia, personally reviewed Code Status & VTE Plan Code Status Full code Supervising Physician Co-Signing Physician Notes I have seen and discussed the case with the collaborating DENNIS. I agree with the above H&P. I have reviewed and confirmed the patients medical history, the findings on physical examination, and the patients diagnosis and treatment plan with Rashel COLLINS and agree with the information documented. In short, Mr. Cat is a 32-year-old male with PMHx of anxiety, depression, adjustment disorder, cannabis use disorder(last time used marijuana was over 2 years ago), who is admitted for multiple pulmonary emboli and pleural effusion. Patient with no family history of known clotting disorder, no known personal history. Recent tattoo in nursing home, 2-3 months ago Evalauted by ramon, possible thora 05/19. On heparin drip. GENERAL APPEARANCE: AxOx4, generally well-appearing male, positional discomfort. HEENT: NC, AT. MMM. EOMI, clear conjunctiva, oropharynx clear. NECK: Supple without lymphadenopathy. No stiffness or restricted ROM. HEART: Normal rate and regular rhythm, normal S1/S1, no m/r/g LUNGS: CTAB, moving air well, decreased right breath sounds ABDOMEN: Soft, nontender, nondistended with good bowel sounds heard. BACK: No CVAT, no obvious deformity. EXTREMITIES: Without cyanosis, clubbing or edema. NEUROLOGICAL: Grossly nonfocal. Alert and oriented, moving all 4 extremities. Skin: Warm and dry without any rash. #Multiple pulmonary emboli #Multiple pulmonary infarcts c/b pleural effusion Prominent right cardiophrenic angle lymph nodes noted Heparin drip Puldesi on consult, possible thora tomorrow Rest of plan as above I have reviewed the advanced practitioner's documentation, and I agree with, and take responsibility for the plan of care I spent a total of 35 minutes coordinating, documenting, and providing care for this patient excluding time spent in the performance of separately billed se rvices. All of the aforementioned completed outside of collaborating with the assigned advanced practitioner for a full treatment plan. Please see their addendum for further details.
[2023-05-18] MEDS ORDERED: MoRPHine SULFATE 2 MG/ML CARP IV PRN (17:52)
[2023-05-18] MEDS: HEPARIN SOD (PORCINE) 1000 UNIT/ML IV STA (18:06)
[2023-05-18] MEDS: HEPARIN SODIUM/DEXTROSE 25,000 UNITS/500 ML BAG IV SCH (18:06)
[2023-05-18] MEDS: HEPARIN SOD (PORCINE) 1000 UNIT/ML IV ONE (18:14)
[2023-05-18 19:07] LABS: Influenza A virus by PCR Negative (Neg); Influenza B virus by PCR Negative (Neg); RSV by PCR Negative (Neg); SARS CoV2 RNA(COVID-19) Ceph NEGATIVE (Negative)
[2023-05-18] MEDS ORDERED: ONDANSETRON INJ 2 MG/ML 2 ML VIAL IV PRN (19:36)
[2023-05-18] MEDS ORDERED: ACETAMINOPHEN 325 MG TAB PO PRN (19:36)
--- NOTE | 2023-05-18 20:22 | Ultrasound Report ---
Exam(s): US VENOUS BILATERAL LOWER EXTREMITIES EXAM: US Duplex Bilateral Lower Extremities Veins CLINICAL HISTORY: Reason for exam: r/o DVT, B/l. TECHNIQUE: Real-time duplex ultrasound scan of the bilateral lower extremity veins integrating B-mode two-dimensional vascular structure, Doppler spectral analysis, color flow Doppler imaging and compression. COMPARISON: No relevant prior studies available. FINDINGS: Right deep veins: Unremarkable. No DVT in the right common femoral, femoral, proximal deep femoral or popliteal veins. The veins demonstrate normal color flow, are normally compressible, with normal phasic flow and/or augmentation response. Right superficial veins: Unremarkable. No thrombus in the visualized right great saphenous vein. Left deep veins: There is occlusive thrombus in the left popliteal vein which is noncompressible consistent with acute DVT. Left superficial veins: Unremarkable. No thrombus in the visualized left great saphenous vein. Soft tissues: No acute findings. No popliteal cyst. IMPRESSION: 1. There is occlusive thrombus in the left popliteal vein which is noncompressible consistent with acute DVT. 2. No evidence of DVT in the right lower extremity. Communications: Call Doctor DVT acute, progressing Electronically signed by: Jonathan John MD 05/18/23 20:21 PM
[2023-05-18] MEDS: ACETAMINOPHEN 500 MG TAB PO STA (20:49)
[2023-05-18] MEDS: MoRPHine SULFATE 2 MG/ML CARP IV STA (20:49)
[2023-05-18] MEDS: PRAZOSIN HCL 1 MG CAP PO SCH (21:15)
[2023-05-18] MEDS: ACETAMINOPHEN 500 MG TAB PO SCH (21:16)
[2023-05-18] MEDS: busPIRone 15 MG TAB PO SCH (21:16)
[2023-05-18] MEDS: MIRTAZAPINE SOLTAB 15 MG PO SCH (21:16)
[2023-05-18] MEDS: ARIPiprazole 5 MG TAB PO SCH (21:16)
[2023-05-19 01:55] LABS: ANTI-Xa, UFH(UnfractionatedHep 0.98 IU/ml (0.3-0.7)
[2023-05-19 06:23] LABS: Hematocrit (blood only) 45.5 % (42.0-52.0); Hemoglobin 15.4 g/dl (14.0-18.0); Mean Corpuscular Hemoglobin 29.3 pg (25.0-34.0); Mean Corpuscular Hgb Conc 33.8 g/dL (32.0-36.0); Mean Corpuscular Volume 86.7 fL (80.0-100.0); Mean Platelet Volume 9.5 fL (9.4-12.4); Platelet Count 272 K/uL (130-400); RDW Coefficient of Variation 12.1 % (11.5-14.5); RDW Standard Deviation 38.5 fL (36.4-46.3); Red Blood Count 5.25 M/uL (4.70-6.10); White Blood Count 5.81 K/ul (4.8-10.8)
[2023-05-19 06:39] LABS: Albumin Level 4.1 gm/dl (3.4-5.0); Bilirubin,Total 0.6 mg/dl (0.2-1.0); Calcium 9.3 mg/dl (8.6-10.3); Creatinine Clr Calc Pharmacy 105.8 ml/min; Est GFR (African American) 86.5 ml/min; Est GFR (Non-African American) 74.7 ml/min; Total Protein 7.2 gm/dl (6.0-8.3)
--- NOTE | 2023-05-19 10:55 | XCELERA ---
[id number] \\[id number]
--- NOTE | 2023-05-19 13:59 | XRay Report ---
XR chest 1V not portable CLINICAL HISTORY: s/p rt thoracentesis with stat read COMPARISON STUDY: Chest CT May 18, 2023. FINDINGS: There is no pneumothorax following right thoracentesis. The right pleural effusion has francis edly decreased in size since prior exam. No significant residual pleural effusion is noted. Right mid and lower lung densities are again noted. Left lung is clear. Pulmonary vascularity is normal. IMPRESSION: 1. No pneumothorax following right thoracentesis. 2. Right mid and lower lung densities, better depicted on prior CT. ACT 112: Negative or not required by law. Electronically signed by: Vishal Awad M.D. 05/19/2023 1:57 PM
--- NOTE | 2023-05-19 14:36 | Pulmonology Progress Note ---
Date of Service May 19, 2023 Assessment & Plan (1) Pleural effusion: (2) Pulmonary infarction: (3) Pulmonary embolism: (4) Abnormal chest CT: (5) DVT (deep venous thrombosis): Plan CTA chest 05/18/2023 personally reviewed: Large right-sided pleural effusion Bilateral pulmonary emboli appreciated No RV strain on the CAT scan Does have opacity in the right middle as well as the right lower lobe Likely represent pulmonary infarct -- Acute pulmonary emboli No evidence of right heart strain on the CAT scan sPESI 0 BNP 3 Troponin negative EKG shows sinus tachycardia. No ST-T wave changes. Normal axis, QTc 438 --Large right-sided pleural effusion Etiology is not clear S/p thoracentesis 05/19/2023: Exudative as per lights criteria Pleural: LDH 141, protein 5.3, glucose 100, pH 7.43 Serum: LDH 149, protein 7.2 -- Abnormal chest CT Patient does seem to have some opacities in the right middle lobe on the periphery as well as right lower lobe on the periphery Going more towards pulmonary infarcts from the pulmonary emboli that he has. Will need to repeat CT chest to be done in 3 months to keep an eye on them. Plan: S/p right-sided thoracentesis, follow-up cytology It is exudative. Is unprovoked. He will need lifelong anticoagulation. Would recommend hypercoagulable workup to be done. Case was discussed with Dr. Justin. No further recommendation from pulmonary perspective, will sign off Please call directly with any questions Please note the above document was generated using voice recognition software. It may contain grammatical, syntax or spelling errors.Any formal questions or concerns about the content, text or information contained within the body of this dictation should be directly addressed to the provider for clarification. Given that PE and a DVT Admission and Anticipated Discharge Date Admission Date: May 18, 2023 Subjective Patient seen and examined at bedside. No acute distress, no adverse events overnight Patient is s/p thoracentesis of the right side. He states that he is feeling much better after the fluid was removed Breathing has significantly improved. Denies any pleuritic chest pain right now No coughing. Review of Systems 2 Review of Systems: All systems reviewed & are unremarkable except as noted in Subjective Physical Exam 2 Physical Exam: Constitutional: No acute distress HEENT: EOMI, PERRLA Respiratory system: Decreased air entry bilaterally, no wheeze, no rhonchi, no crackles CVS: S1-S2 positive, no murmurs or gallops Abdomen: Soft, nontender, nondistended, positive bowel sounds x4 Extremities: +2 pulses bilaterally radialis/ dorsalis pedis, no cyanosis, no edema Neuro: Awake alert oriented x3 Psych: Normal mood and affect G/U: No Grewal Skin: no rashes, warm and dry Lymphatic: no cervical or axillary lymphadenopathy Results & Data Results & Data Vital Signs (Past 12 Hours) Vital Signs Temp Pulse Resp BP Pulse Ox O2 Del Method 05/19/23 14:00 90 16 127/80 94 Room Air 05/19/23 12:12 36.8 C 72 17 130/87 98 Room Air 05/19/23 08:33 37.0 C 73 17 121/85 96 Room Air 05/19/23 08:00 Room Air 05/19/23 04:12 36.5 C 82 18 124/80 96 Room Air Laboratory Results 05/19/23 05:43 05/19/23 05:43 PG Care Time/CCT Total # of Minutes Spent Total Time Spent with Patient: Total time spent is greater than 50% in coordination of care (as documented) at patient's floor/unit and/or counseling patient: Coding Level of Care Code 62777 SUB INP/OBS CARE 3/50MIN Diagnoses Pleural effusion J90 Pulmonary infarction I26.99 Pulmonary embolism I26.[address] R93.89 DVT (deep venous thrombosis) I82.409
[2023-05-19 15:09] LABS: Total Protein Pleural Fluid 5.3 gm/dl
--- NOTE | 2023-05-19 15:11 | Hospitalist Progress Note ---
Date of Service May 19, 2023 Assessment & Plan (1) Pulmonary embolism: (2) Pulmonary infarction: (3) Pleural effusion: Plan: Acute bilateral pulmonary Emboli B/L PE due to acute DVT of left popliteal vein Left lower extremity DVT Pulmonary infarction Right pleural effusion --CTA: Bilateral pulmonary emboli with borderline right-sided heart strain and multiple right-sided pulmonary infarcts. Moderate to large right pleural effusion. Lobular hypodensity within the base of the right lower lobe measuring 4.1 x 3.4 cm. This may also represent a pulmonary infarct. However, follow-up chest CT in 3 months is recommended to exclude the possibility of a pulmonary mass. Mild dilatation of the aortic root measuring 4 cm. No evidence for an aortic dissection. --ECHO: There is septal hypertrophy. Left ventricle systolic function is normal. Mild right ventricular hypertrophy. Right ventricle systolic pressure is normal. No significant valvular heart disease --Serology for COVID, influenza, RSV negative --S/p thoracentesis 05/19/2023: Exudative as per lights criteria --Continue IV heparin Needs hypercoagulable workup as outpatient Appreciate pulmonology input Follow-up cytology, cultures Will need repeat CT as outpatient Saturating well on room air Abnormal CT chest CT as above Right middle lobe opacity likely pulmonary infarct Needs repeat CT in 3 months Creatinine elevation Possible Acute kidney injury Unknown baseline renal function Cr 1.25 today Monitor renal function Anxiety and depression Adjustment disorder History of marijuana use -Continue on Abilify, prazosin, BuSpar, mirtazapine DVT Px: Heparin drip CODE STATUS: Full code (4) JONAS (acute kidney injury): Admission and Anticipated Discharge Date Admission Date: May 18, 2023 Subjective Patient is seen and examined at bedside Pleuritic chest pain much improved Denies any dyspnea, dizziness, nausea, vomiting, abdominal pain Patient had thoracentesis earlier today Discussed with pulmonology today Assisted guards at bedside Review of Systems Review of Systems: All systems reviewed & are unremarkable except as noted in Subjective Physical Exam Physical Exam: Physical Exam: Vitals signs as noted above General Appearance:Moderately built and nourished, no apparent distress Head: normocephalic, Atraumatic Eyes: normal inspection, EOMI Neck: supple, Trachea midline Respiratory/Chest: Decreased breath sounds on right side, CTA, No accessory muscle use Cardiovascular: S1, S2, No murmur Abdomen/GI:Soft, Non tender, Bowel sounds present Extremities/Musculoskeletal:normal inspection, no edema Neurologic/Psych:AAOX3, grossly no focal neurological deficits Skin: normal color, warm Results & Data Results & Data Vital Signs (Past 12 Hours) Vital Signs Temp Pulse Resp BP Pulse Ox O2 Del Method 05/19/23 15:00 90 16 134/88 97 Room Air 05/19/23 14:00 90 16 127/80 94 Room Air 05/19/23 12:12 36.8 C 72 17 130/87 98 Room Air 05/19/23 08:33 37.0 C 73 17 121/85 96 Room Air 05/19/23 08:00 Room Air 05/19/23 04:12 36.5 C 82 18 124/80 96 Room Air Laboratory Results Short CBC 05/19/23 Range/Units 05:43 WBC 5.81 (4.8-10.8) K/ul Hgb 15.4 (14.0-18.0) g/dl Hct 45.5 (42.0-52.0) % Plt Count 272 (130-400) K/uL BMP 05/18/23 05/19/23 14:23 05:43 Sodium 138 138 Potassium 4.7 4.0 Chloride 105 106 Carbon Dioxide 27 24 BUN 13 15 Creatinine 1.44 H 1.25 Glucose 87 107 H Calcium 10.0 9.3 Liver Function 05/18/23 05/19/23 Range/Units 14:23 05:43 Total Bilirubin 0.7 0.6 (0.2-1.0) mg/dl AST 11 L (13-39) U/L ALT 15 (7-52) U/L Alkaline Phosphatase 62 (34-104) U/L Albumin 4.6 4.1 (3.4-5.0) gm/dl
--- NOTE | 2023-05-19 15:31 | Ultrasound Report ---
ULTRASOUND GUIDED THORACENTESIS CLINICAL HISTORY: Large right-sided pleural effusion. Procedure: Procedure and risks were explained. Informed consent was obtained. A final timeout was com pleted. Sonographic examination revealed a large right pleural effusion. The skin of the right post erior chest was prepped and draped in sterile fashion. 1% buffered lidocaine was utilized for skin an esthesia. Utilizing ultrasound guidance, a 5 [place] safety centesis catheter was introduced into the pleural space and 1200 ml of yellow fluid was drained and and sent to the lab for analysis. Ultrasou nd images were obtained. The catheter was removed. Post procedure scanning revealed a significant dec rease in the size of the pleural effusion. Postprocedural chest x-ray showed no pneumothorax. Complication: No immediate. Child Therapist: Luis Antonio May PA-C. IMPRESSION: Ultrasound guided thoracentesis as described above. Performed, dictated, and signed by Luis Antonio May PA-C; to be co-signed by Dr. Aurelio Buenrostro. Electronically signed by: Aurelio Buenrostro M.D. 05/19/2023 4:03 PM
[2023-05-19 15:57] LABS: Appearance Pleural Fluid Hazy; Color Pleural Fluid Yellow; Lymphocytes, Fluid 3 %; Mono,Macrophage,Mesothelial 49 %; Neutrophils, Fluid 48 %; RBC Pleural Fluid Auto < 2000 /uL; Source Pleural Fluid Right Lung; WBC Pleural Fluid Auto 3456 /uL
[2023-05-19 22:06] LABS: ANTI-Xa, UFH(UnfractionatedHep 0.37 IU/ml (0.3-0.7)
[2023-05-20 04:40] LABS: Hematocrit (blood only) 46.3 % (42.0-52.0); Hemoglobin 15.5 g/dl (14.0-18.0); Mean Corpuscular Hemoglobin 29.5 pg (25.0-34.0); Mean Corpuscular Hgb Conc 33.5 g/dL (32.0-36.0); Mean Platelet Volume 9.2 fL (9.4-12.4); Platelet Count 253 K/uL (130-400); RDW Standard Deviation 38.6 fL (36.4-46.3); Red Blood Count 5.26 M/uL (4.70-6.10); White Blood Count 6.89 K/ul (4.8-10.8)
[2023-05-20 04:58] LABS: Calcium 8.9 mg/dl (8.6-10.3); Creatinine Clr Calc Pharmacy 110.2 ml/min; Est GFR (African American) 90.9 ml/min; Est GFR (Non-African American) 78.4 ml/min; Potassium 3.7 mmol/L (3.5-5.1)
[2023-05-20 05:04] LABS: ANTI-Xa, UFH(UnfractionatedHep 0.51 IU/ml (0.3-0.7)
--- NOTE | 2023-05-20 09:42 | Pulmonology Progress Note ---
Date of Service May 20, 2023 Assessment & Plan (1) Pleural effusion: (2) Pulmonary infarction: (3) Pulmonary embolism: (4) Abnormal chest CT: (5) DVT (deep venous thrombosis): Plan CTA chest 05/18/2023 personally reviewed: Large right-sided pleural effusion Bilateral pulmonary emboli appreciated No RV strain on the CAT scan Does have opacity in the right middle as well as the right lower lobe Likely represent pulmonary infarct -- Acute pulmonary emboli No evidence of right heart strain on the CAT scan sPESI 0 BNP 3 Troponin negative EKG shows sinus tachycardia. No ST-T wave changes. Normal axis, QTc 438 --Large right-sided pleural effusion Etiology is not clear S/p thoracentesis 05/19/2023: Exudative as per lights criteria Pleural: LDH 141, protein 5.3, glucose 100, pH 7.43 Serum: LDH 149, protein 7.2 -- Abnormal chest CT Patient does seem to have some opacities in the right middle lobe on the periphery as well as right lower lobe on the periphery Going more towards pulmonary infarcts from the pulmonary emboli that he has. Will need to repeat CT chest to be done in 3 months to keep an eye on them. 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 He will need lifelong anticoagulation. Would recommend hypercoagulable workup to be done. Case was discussed with Dr. Justin. No further recommendation from pulmonary perspective, will sign off Please call directly with any questions Please note the above document was generated using voice recognition software. It may contain grammatical, syntax or spelling errors.Any formal questions or concerns about the content, text or information contained within the body of this dictation should be directly addressed to the provider for clarification. Given that PE and a DVT Admission and Anticipated Discharge Date Admission Date: May 18, 2023 Subjective Patient seen and examined at bedside. No acute distress, notable symptoms overnight He was saturating well on room air. Denied any chest pain Appetite No hemoptysis, no hematuria, no hematochezia. Has been afebrile Review of Systems 2 Review of Systems: All systems reviewed & are unremarkable except as noted in Subjective Physical Exam 2 Physical Exam: Constitutional: No acute distress HEENT: EOMI, PERRLA Respiratory system: Decreased air entry bilaterally, no wheeze, no rhonchi, positive crackles on the right side CVS: S1-S2 positive, no murmurs or gallops Abdomen: Soft, nontender, nondistended, positive bowel sounds x4 Extremities: +2 pulses bilaterally radialis/ dorsalis pedis, no cyanosis, no edema Neuro: Awake alert oriented x3 Psych: Normal mood and affect G/U: No Grewal Skin: no rashes, warm and dry Lymphatic: no cervical or axillary lymphadenopathy Results & Data Results & Data Vital Signs (Past 12 Hours) Vital Signs Temp Pulse Pulse Pulse Resp BP Pulse Ox 05/20/23 08:09 05/20/23 08:09 77 05/20/23 07:40 36.7 C 84 18 136/92 97 05/20/23 03:46 36.5 C 77 18 130/78 97 05/20/23 00:00 69 05/19/23 23:14 36.6 C 75 18 112/73 97 O2 Del Method 05/20/23 08:09 Room Air 05/20/23 08:09 05/20/23 07:40 Room Air 05/20/23 03:46 Room Air 05/20/23 00:00 05/19/23 23:14 Room Air Laboratory Results 05/20/23 04:27 05/20/23 04:27 PG Care Time/CCT Total # of Minutes Spent Total Time Spent with Patient: Total time spent is greater than 50% in coordination of care (as documented) at patient's floor/unit and/or counseling patient: Coding Level of Care Code 09722 SUB INP/OBS CARE 2/35MIN Diagnoses Pleural effusion J90 Pulmonary infarction I26.99 Pulmonary embolism I26.[address] R93.89 DVT (deep venous thrombosis) I82.409
[2023-05-20] MEDS: APIXABAN 5 MG TABLET PO SCH (11:02)
--- NOTE | 2023-05-20 12:58 | Hospitalist Progress Note ---
Date of Service May 20, 2023 Assessment & Plan (1) Pulmonary embolism: (2) Pulmonary infarction: (3) Pleural effusion: Plan: Acute bilateral pulmonary Emboli B/L PE due to acute DVT of left popliteal vein Left lower extremity DVT Pulmonary infarction Right pleural effusion --CTA: Bilateral pulmonary emboli with borderline right-sided heart strain and multiple right-sided pulmonary infarcts. Moderate to large right pleural effusion. Lobular hypodensity within the base of the right lower lobe measuring 4.1 x 3.4 cm. This may also represent a pulmonary infarct. However, follow-up chest CT in 3 months is recommended to exclude the possibility of a pulmonary mass. Mild dilatation of the aortic root measuring 4 cm. No evidence for an aortic dissection. --ECHO: There is septal hypertrophy. Left ventricle systolic function is normal. Mild right ventricular hypertrophy. Right ventricle systolic pressure is normal. No significant valvular heart disease --Serology for COVID, influenza, RSV negative --S/p thoracentesis 05/19/2023: Exudative as per lights criteria --Continue IV heparin>> transition to Eliquis Appreciate pulmonology input Follow-up cytology, cultures pending Will need repeat CT as outpatient Saturating well on room air Will need hypercoagulable workup as outpatient and follow-up with pulmonology as outpatient upon discharge Abnormal CT chest CT as above Right middle lobe opacity likely pulmonary infarct Needs repeat CT in 3 months Creatinine elevation Possible Acute kidney injury Unknown baseline renal function Cr 1.2 today Monitor renal function Anxiety and depression Adjustment disorder History of marijuana use -Continue on Abilify, prazosin, BuSpar, mirtazapine DVT Px: Eliquis CODE STATUS: Full code (4) JONAS (acute kidney injury): Admission and Anticipated Discharge Date Admission Date: May 18, 2023 Subjective Patient is seen and examined at bedside States feeling a lot better today Pleuritic chest pain resolved Denies any dyspnea, dizziness, nausea, vomiting, abdominal pain Discussed with pulmonology today Plan to discharge today Review of Systems Review of Systems: All systems reviewed & are unremarkable except as noted in Subjective Physical Exam Physical Exam: Physical Exam: Vitals signs as noted above General Appearance:Moderately built and nourished, no apparent distress Head: normocephalic, Atraumatic Eyes: normal inspection, EOMI Neck: supple, Trachea midline Respiratory/Chest: Decreased breath sounds on right side, CTA, No accessory muscle use Cardiovascular: S1, S2, No murmur Abdomen/GI:Soft, Non tender, Bowel sounds present Extremities/Musculoskeletal:normal inspection, no edema Neurologic/Psych:AAOX3, grossly no focal neurological deficits Skin: normal color, warm Results & Data Results & Data Vital Signs (Past 12 Hours) Vital Signs Temp Pulse Pulse Pulse Resp BP Pulse Ox 05/20/23 11:03 37.0 C 95 H 16 131/81 97 05/20/23 08:09 05/20/23 08:09 77 05/20/23 07:40 36.7 C 84 18 136/92 97 05/20/23 03:46 36.5 C 77 18 130/78 97 O2 Del Method 05/20/23 11:03 Room Air 05/20/23 08:09 Room Air 05/20/23 08:09 05/20/23 07:40 Room Air 05/20/23 03:46 Room Air Laboratory Results Short CBC 05/20/23 Range/Units 04:27 WBC 6.89 (4.8-10.8) K/ul Hgb 15.5 (14.0-18.0) g/dl Hct 46.3 (42.0-52.0) % Plt Count 253 (130-400) K/uL BMP 05/20/23 04:27 Sodium 136 Potassium 3.7 Chloride 108 H Carbon Dioxide 22 BUN 12 Creatinine 1.20 Glucose 118 H Calcium 8.9
--- NOTE | 2023-05-20 13:09 | Discharge Summary ---
Date of Service May 20, 2023 Admission HPI Per Admitting Provider This is a 32-year-old male with PMHx of anxiety, depression, adjustment disorder, cannabis use disorder(last time used marijuana was over 2 years ago), who presents to the hospital from [facility] for onset of right-sided chest pain x 1.5 weeks. This right sided chest pain extends down the flank region, worsened with deep breaths, seems to be fairly constant/consistent over the past 2 weeks. He denies any notable shortness of breath. 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 Denies any recent injuries or trauma. He is not sedentary. He admits that he has vaped nicotine for about the past 2 years since being in the [place] [facility]. He denies any known family member with clotting disorders or hx of clots. Denies lower extremity leg swelling or arm swelling. Pt has gotten one tattoo while he was incarcerated which was a few months ago. Other tattoos were done prior to incarceration. He takes his medications routinely and last received them last night. He states that his pain is currently an 8/10 in his ribs, has not gotten any pain medicine since being in the ER. He is also asking if he is able to eat anything as he has not done so today. Reports his bowels are normal, no urinary complaints, no fevers, chills or sweats. Admission Exam Per Admitting Provider General: awake, alert, no apparent distress, -Citizen Of [place], physically fit male, BMI of 32.4 Head: Normocephalic, atraumatic ENT: PERRL, EOMI, no pharyngeal exudate, mucous membranes moist Chest: Clear to auscultation, right-sided lower lobe breath sounds are absent, on room air O2 sats are 98%, no adventitious breath sounds Cardiac: Regular rate and rhythm, no murmur, no JVD, normal peripheral pulses, good capillary refill Abdominal: NABS x 4 quadrants, soft, nondistended, nontender to palpation, no rebound or guarding Extremities: Normal inspection, no peripheral edema or erythema, calfs nontender to palpation Psych: Normal mood and affect Skin: Multiple tattoos on arms, neck, chest- ptreports left forearm tattoo done in [place] several months ago, well-healed, no surrounding edema or erythema present Neuro: AAO x 3, strength intact bilaterally and rated 5/5, no motor deficits, speech is clear, no peripheral sensory deficits Principal Diagnosis Acute bilateral pulmonary Emboli Left lower extremity DVT Pulmonary infarction Right pleural effusion Right middle lobe lung opacity Discharge Data Allergies Allergy/AdvReac Type Severity Reaction Status Date / Time No Known Allergies Allergy Unverified 05/18/23 17:14 Consultations 05/18/23 16:52 Consult Pulmonology Stat 05/18/23 17:35 ED Decision to Admit Stat 05/18/23 19:36 Consult Pulmonology Routine Procedures Performed Laboratory Results WBC 6.89 K/ul (4.8-10.8) 05/20/23 04:27 RBC 5.26 M/uL (4.70-6.10) 05/20/23 04:27 Hgb 15.5 g/dl (14.0-18.0) 05/20/23 04:27 Hct 46.3 % (42.0-52.0) 05/20/23 04:27 MCV 88.0 fL (80.0-100.0) 05/20/23 04:27 MCH 29.5 pg (25.0-34.0) 05/20/23 04:27 MCHC 33.5 g/dL (32.0-36.0) 05/20/23 04:27 RDW Std Deviation 38.6 fL (36.4-46.3) 05/20/23 04:27 RDW Coeff of Alberto 12.0 % (11.5-14.5) 05/20/23 04:27 Plt Count 253 K/uL (130-400) 05/20/23 04:27 MPV 9.2 fL (9.4-12.4) L 05/20/23 04:27 Immature Gran % (Auto) 0.1 % 05/18/23 14:23 Neut % (Auto) 64.1 % 05/18/23 14:23 Lymph % (Auto) 27.2 % 05/18/23 14:23 Hays % (Auto) 7.3 % 05/18/23 14:23 Eos % (Auto) 0.9 % 05/18/23 14:23 Baso % (Auto) 0.4 % 05/18/23 14:23 Neut # (Auto) 4.91 K/uL (1.40-6.50) 05/18/23 14:23 Lymph # (Auto) 2.08 K/uL (1.20-3.40) 05/18/23 14:23 Hays # (Auto) 0.56 K/uL (0.11-0.59) 05/18/23 14:23 Eos # (Auto) 0.07 K/uL (0.00-0.50) 05/18/23 14:23 Baso # (Auto) 0.03 K/uL (0.00-0.20) 05/18/23 14:23 Immature Gran # (Auto) 0.01 K/uL (0.01-0.20) 05/18/23 14:23 PT 11.4 Seconds (9.0-12.0) 05/18/23 14:23 INR 1.0 (0.9-1.1) 05/18/23 14:23 APTT 28 Seconds (21-31) 05/18/23 14:23 PTT Ratio 1.0 05/18/23 14:23 Heparin Anti-Xa, Unfract 0.51 IU/ml (0.3-0.7) 05/20/23 04:27 Sodium 136 mmol/L (136-145) 05/20/23 04:27 Potassium 3.7 mmol/L (3.5-5.1) 05/20/23 04:27 Chloride 108 mmol/L (98-107) H 05/20/23 04:27 Carbon Dioxide 22 mmol/L (21-32) 05/20/23 04:27 Anion Gap 6 (3-11) 05/20/23 04:27 BUN 12 mg/dl (6-23) 05/20/23 04:27 Creatinine 1.20 mg/dl (0.6-1.4) 05/20/23 04:27 Est Cr Clr Drug Dosing 110.2 ml/min 05/20/23 04:27 Est GFR ( Amer) 90.9 ml/min 05/20/23 04:27 Est GFR (Non-Af Amer) 78.4 ml/min 05/20/23 04:27 BUN/Creatinine Ratio 10.0 (10-20) 05/20/23 04:27 Glucose 118 mg/dl (70-99(Fasting)) H 05/20/23 04:27 Calcium 8.9 mg/dl (8.6-10.3) 05/20/23 04:27 Magnesium 2.0 mg/dl (1.7-2.4) 05/20/23 04:27 Total Bilirubin 0.6 mg/dl (0.2-1.0) 05/19/23 05:43 AST 11 U/L (13-39) L 05/18/23 14:23 ALT 15 U/L (7-52) 05/18/23 14:23 Alkaline Phosphatase 62 U/L (34-104) 05/18/23 14:23 Lactate Dehydrogenase 149 U/L (86-244) 05/19/23 05:43 Troponin I High Sens 2.4 pg/ml (0-20) 05/18/23 18:17 B-Natriuretic Peptide 3 pg/ml (0-100) 05/18/23 18:17 Total Protein 7.2 gm/dl (6.0-8.3) 05/19/23 05:43 Albumin 4.1 gm/dl (3.4-5.0) 05/19/23 05:43 Globulin 3.5 gm/dl (2.5-4.0) 05/18/23 14:23 Albumin/Globulin Ratio 1.3 (0.9-2) 05/18/23 14:23 Lipase 24 U/L (11-82) 05/18/23 14:23 Fluid Neutrophils % 48 % 05/19/23 13:59 Fluid Lymphocytes % 3 % 05/19/23 13:59 Fluid Meso/Macro/Hays % 49 % 05/19/23 13:59 Fluid Comment 05/19/23 13:59 Pleural Fluid Source Right Lung 05/19/23 13:59 Pleural Color Yellow 05/19/23 13:59 Pleural Appearance Hazy 05/19/23 13:59 Pleural pH 7.43 (7.3-7.4) H 05/19/23 13:59 Pleural WBC (Auto) 3456 /uL 05/19/23 13:59 Pleural RBC (Auto) < 2000 /uL 05/19/23 13:59 Pleural Total Protein 5.3 gm/dl 05/19/23 13:59 Pleural LDH 141 U/L 05/19/23 13:59 Pleural Glucose 100 mg/dl 05/19/23 13:59 Pleural Amylase 34 U/L 05/19/23 13:59 Nasal Screen MRSA (PCR) Negative (Negative) 05/18/23 22:39 SARS-CoV-2 (PCR) NEGATIVE (Negative) 05/18/23 Unknown Influenza Type A (PCR) Negative (Neg) 05/18/23 Unknown Influenza Type B (PCR) Negative (Neg) 05/18/23 Unknown RSV (RT-PCR) Negative (Neg) 05/18/23 Unknown Impressions Venous Doppler Study 05/18/23 00:00 CR Exam(s): US VENOUS BILATERAL LOWER EXTREMITIES EXAM: US Duplex Bilateral Lower Extremities Veins CLINICAL HISTORY: Reason for exam: r/o DVT, B/l. TECHNIQUE: Real-time duplex ultrasound scan of the bilateral lower extremity veins integrating B-mode two-dimensional vascular structure, Doppler spectral analysis, color flow Doppler imaging and compression. COMPARISON: No relevant prior studies available. FINDINGS: Right deep veins: Unremarkable. No DVT in the right common femoral, femoral, proximal deep femoral or popliteal veins. The veins demonstrate normal color flow, are normally compressible, with normal phasic flow and/or augmentation response. Right superficial veins: Unremarkable. No thrombus in the visualized right great saphenous vein. Left deep veins: There is occlusive thrombus in the left popliteal vein which is noncompressible consistent with acute DVT. Left superficial veins: Unremarkable. No thrombus in the visualized left great saphenous vein. Soft tissues: No acute findings. No popliteal cyst. IMPRESSION: 1. There is occlusive thrombus in the left popliteal vein which is noncompressible consistent with acute DVT. 2. No evidence of DVT in the right lower extremity. Communications: Call Doctor DVT acute, progressing Electronically signed by: Jonathan John MD 05/18/23 20:21 PM Chest CTA 05/18/23 14:12 CHEST CTA for PULMONARY ARTERIES CT DOSE: HISTORY: R sided chest pain, cannot lay flat TECHNIQUE: Multiaxial CT images of the chest were performed following the intravenous administration of contrast to evaluate the pulmonary arteries. 3D/Maximal intensity projection images were also obtained. Sagittal and coronal reformations were also reviewed. A dose lowering technique was utilized adhering to the principles of ALARA. COMPARISON STUDY: None. FINDINGS: No acute fractures within the chest. The abdominal structures will be reported on the same day abdomen and pelvis CT. No evidence for an aortic dissection. The aortic root is mildly dilated up to 4 cm. The heart is normal in size. Borderline right-sided heart strain is noted. Trace pericardial effusion. There is a moderate to large right pleural effusion. Multiple bilateral pulmonary emboli in involving the majority of the bilateral lower lobe, right middle lobe, and lingular segmental pulmonary arteries. Normal esophagus. The thyroid gland enhances normally. No mediastinal or hilar lymphadenopathy. Small amount of soft tissue within the anterior mediastinum favors residual thymus given the patient's age. No pneumothorax. The central airways are patent. The left lung is clear. Consolidation within the base of the right lower lobe is nonspecific but favors compressive atelectasis from the pleural effusion. Focal wedge-shaped densities within the right middle lobe favor pulmonary infarcts. Lobular hyperdensity within the base of the right lower lobe on image 129 measuring 4.1 x 3.4 cm. This may also represent a pulmonary infarct. However, [address] follow-up recommended to ensure resolution and exclude the possibility of an underlying pulmonary mass. IMPRESSION: 1. Bilateral pulmonary emboli with borderline right-sided heart strain and multiple right-sided pulmonary infarcts. 2. Moderate to large right pleural effusion. 3. Lobular hypodensity within the base of the right lower lobe measuring 4.1 x 3.4 cm. This may also represent a pulmonary infarct. However, follow-up chest CT in 3 months is recommended to exclude the possibility of a pulmonary mass. 4. Mild dilatation of the aortic root measuring 4 cm. No evidence for an aortic dissection. ACT 112: Negative or not required by law. Electronically signed by: Aurelio Buenrostro M.D. 05/18/2023 4:27 PM Abdomen/Pelvis CT 05/18/23 14:33 CT OF THE ABDOMEN AND PELVIS WITH CONTRAST CLINICAL HISTORY: R sided flank pain, R sided chest pain COMPARISON STUDY: None. TECHNIQUE: Following IV administration of 115 mL of Optiray, axial images of the abdomen and pelvis were obtained from the lung bases to the proximal femurs. Images were reviewed in the axial, sagittal, and coronal planes. IV contrast was administered without complication. Automated exposure control was utilized for the study. A dose lowering technique was utilized adhering to the principles of ALARA. CT DOSE: 2365.52 mGy.cm FINDINGS: Multiple pulmonary emboli are depicted on the chest CT which will be reported separately. There is a moderate right pleural effusion. Several right lung suspected pulmonary infarcts are better depicted on the chest CT. No pneumatosis, free air or portal venous gas is present. Prominent right cardiophrenic angle lymph nodes noted. Liver, spleen, adrenal glands, kidneys and pancreas are unremarkable. Subcentimeter left renal lesion is too small to characterize. There is no biliary or pancreatic ductal dilatation. No hydronephrosis. The caliber and wall thickness of small and large bowel are normal. The appendix is normal. No ureteral calculi are identified. IMPRESSION: 1. No acute process within the abdomen or pelvis. 2. Multiple pulmonary emboli, several pulmonary infarcts and a moderate size rig ht pleural effusion better depicted on the chest CT which will be reported separately. ACT 112: Negative or not required by law. Electronically signed by: Vishal Awad M.D. 05/18/2023 3:42 PM Thoracentesis/Paracentesis US 05/19/23 00:00 ULTRASOUND GUIDED THORACENTESIS CLINICAL HISTORY: Large right-sided pleural effusion. Procedure: Procedure and risks were explained. Informed consent was obtained. A final timeout was completed. Sonographic examination revealed a large right pleural effusion. The skin of the right posterior chest was prepped and draped in sterile fashion. 1% buffered lidocaine was utilized for skin anesthesia. Utilizing ultrasound guidance, a 5 Thai safety centesis catheter was introduced into the pleural space and 1200 ml of yellow fluid was drained and and sent to the lab for analysis. Ultrasound images were obtained. The catheter was removed. Post procedure scanning revealed a significant decrease in the size of the pleural effusion. Postprocedural chest x-ray showed no pneumothorax. Complication: No immediate. Insulator Helper: Luis Antonio May PA-C. IMPRESSION: Ultrasound guided thoracentesis as described above. Performed, dictated, and signed by Luis Antonio May PA-C; to be co-signed by Dr. Aurelio Buenrostro. Electronically signed by: Aurelio Buenrostro M.D. 05/19/2023 4:03 PM Chest X-Ray 05/19/23 13:36 XR chest 1V not portable CLINICAL HISTORY: s/p rt thoracentesis with stat read COMPARISON STUDY: Chest CT May 18, 2023. FINDINGS: There is no pneumothorax following right thoracentesis. The right pleural effusion has markedly decreased in size since prior exam. No significant residual pleural effusion is noted. Right mid and lower lung densities are again noted. Left lung is clear. Pulmonary vascularity is normal. IMPRESSION: 1. No pneumothorax following right thoracentesis. 2. Right mid and lower lung densities, better depicted on prior CT. ACT 112: Negative or not required by law. Electronically signed by: Vishal Awad M.D. 05/19/2023 1:57 PM Ordered Studies 05/18/23 US venous doppler LE BI Urgent 05/18/23 14:12 CT angio chest PE protocol Stat 05/18/23 14:33 CT abd pelvis IV con only Stat 05/19/23 IR thoracentesis wo tube US Stat Hospital Course (1) Pulmonary embolism: (2) Pulmonary infarction: (3) Pleural effusion: Acute bilateral pulmonary Emboli B/L PE due to acute DVT of left popliteal vein Left lower extremity DVT Pulmonary infarction Right pleural effusion --CTA: Bilateral pulmonary emboli with borderline right-sided heart strain and m ultiple right-sided pulmonary infarcts. Moderate to large right pleural effusion. Lobular hypodensity within the base of the right lower lobe measuring 4.1 x 3.4 cm. This may also represent a pulmonary infarct. However, follow-up chest CT in 3 months is recommended to exclude the possibility of a pulmonary mass. Mild dilatation of the aortic root measuring 4 cm. No evidence for an aortic dissection. --ECHO: There is septal hypertrophy. Left ventricle systolic function is normal. Mild right ventricular hypertrophy. Right ventricle systolic pressure is normal. No significant valvular heart disease --Serology for COVID, influenza, RSV negative --S/p thoracentesis 05/19/2023: Exudative as per lights criteria --Continue IV heparin>> transition to Eliquis Appreciate pulmonology input Follow-up cytology, cultures pending Will need repeat CT as outpatient Saturating well on room air Will need hypercoagulable workup as outpatient and follow-up with pulmonology as outpatient upon discharge Abnormal CT chest CT as above Right middle lobe opacity likely pulmonary infarct Needs repeat CT in 3 months Creatinine elevation Possible Acute kidney injury Unknown baseline renal function Cr 1.2 today Monitor renal function Anxiety and depression Adjustment disorder History of marijuana use -Continue on Abilify, prazosin, BuSpar, mirtazapine DVT Px: Eliquis CODE STATUS: Full code (4) JONAS (acute kidney injury): Total Time Total Time Spent Total Time Spent (In Minutes): 64 minutes Discharge Plan Discharge Items [facility] Reason For Visit: PULMONARY EMBOLISM, PLEURAL EFFUSION Discharge Diagnosis: Acute bilateral pulmonary Emboli Left lower extremity DVT Pulmonary infarction Right pleural effusion Right middle lobe lung opacity Condition on Discharge: Good Activity: Per Instructions section Exercise/Sports: Wait until after follow-up appointment Non-emergency contact: Primary Care Provider and Watch And Clock Repair Clerk Call non-emergency contact if: you have any medication questions, your symptoms worsen, your pain is concerning for you and you have a fever Follow-up/Referrals: Hussain VILLARREAL [Primary Care Provider] - Diet: Regular Addtl Attending Provider Instructions: Follow-up with your primary care physician in 1 week Follow-up with your rn bsn in 3 to 4 weeks as advised -- Get repeat CT chest in 3 months and follow-up with your physician for further recommendations --Get blood work (hypercoagulable workup) as outpatient and discuss with your physician for further recommendations. --Start taking apixaban (Eliquis) 10 mg 2 times a day for 1 week and then take 5 mg 2 times a day. Duration of treatment to be determined by your physician. -- Your pleural fluid studies are pending at the time of discharge. Follow-up with your physician for results. Seek immediate medical attention if your symptoms reoccur or worsen Please take all medications as instructed on discharge list below. Please call if you have any questions or problems. You can reach a [facility] hospitalist on duty at [facility] 24 hours a day by calling [phone] Pending Studies at Discharge: Yes Studies:: Pleural fluid studies Stand-Alone Forms: My [facility] Skilled Items Patient informed of condition?: Yes Discharge Level of Care: Other Communicable Disease: No Discharge Prognosis: Stable Lines: None Urinary Catheter: No Medications and DC Order Prescriptions: New Eliquis 5 mg Tablet 5 mg PO UD Qty: 30 0RF Rx Instructions: Start taking Apixaban 10mg twice a day for 1 week (Until 05/26/23) and then take 5mg twice a day (Starting 05/27/23) Continued prazosin 5 mg Capsule 5 mg PO HS buspirone 30 mg Tablet 30 mg PO HS mirtazapine 45 mg Tablet 45 mg PO HS aripiprazole [Abilify] 5 mg Tablet 5 mg PO HS Discharge Orders: Discharge Order (Routine); Ordered 05/20/23 Ordered By: Bertrand Justin Admission Data Admit Date/Time: 05/18/23 17:29 Attending Provider: Bertrand Justin Admit Provider: Nadira Brown Primary Care Provider: Hussain VILLARREAL Other Providers: Thalia Nesbitt; Nadira Brown
[2023-05-20] MEDS ORDERED: APIXABAN 5 MG TABLET PO SCH (21:00)
== END 2023-05-20 14:27 | DRG 299 ==
LOC: ED 13:59 → 4W 17:29 → SUATTDRO 17:29 → 4W 18:41